=== PATIENT | female | born 1975 | race Caucasian/White ===

== ENCOUNTER 2016-05-13 14:15 | Inpatient (IN) | payer OTHER ==
[2016-05-13] MEDS ORDERED: fentaNYL 100 MCG/2 ML SDV IVPUSH PRN (14:57)
[2016-05-13] MEDS ORDERED: Ondansetron 4 MG Tab.DIS PO PRN (14:57)
[2016-05-13] MEDS ORDERED: Temazepam 15 MG Cap PO PRN (14:57)
[2016-05-13] MEDS ORDERED: Ondansetron 4 MG/2 ML SDV IV PRN (14:57)
[2016-05-13] MEDS ORDERED: Magnesium Hydroxide 400 MG/5 ML Susp 30 ML Cup PO PRN (14:57)
[2016-05-13] MEDS ORDERED: Acetaminophen 325 MG Tab PO PRN (14:57)
[2016-05-13] MEDS ORDERED: Sodium Chloride 0.9% 10 ML Syringe FLUSH PRN (14:57)
[2016-05-13] MEDS ORDERED: methylPREDNISolone Sodium Succinate 125 MG/2 ML SDV IVPUSH ONE (15:00)
[2016-05-13] MEDS ORDERED: LORazepam 0.5 MG Tab PO PRN (15:04)
[2016-05-13] MEDS: cefTRIAXone 1 GM Vial IVPUSH SCH (15:27)
[2016-05-13] MEDS: Ibuprofen 200 MG Tab PO PRN (15:27)
[2016-05-13] MEDS: Lactated Ringers 1,000 ML IV SCH (15:28)
[2016-05-13 15:53] LABS: CHLORIDE,CL 101 mEq/L (98-106); SODIUM,NA 137 mEq/L (136-145)
[2016-05-14] MEDS: Ibuprofen 200 MG Tab PO PRN ×2 (06:17→12:04)
[2016-05-14] MEDS: Lactated Ringers 1,000 ML IV SCH ×3 (06:20→19:53)
[2016-05-14] MEDS ORDERED: methylPREDNISolone Sodium Succinate 125 MG/2 ML SDV IV ONE (08:00)
[2016-05-14 08:23] LABS: CHLORIDE,CL 106 mEq/L (98-106); SODIUM,NA 142 mEq/L (136-145)
--- NOTE | 2016-05-14 12:04 | PN ---
DATE: 05/14/2016 S: Nikole Levy came in with a positive strep sepsis, started on IV antibiotics and IV fluids. She was hypokalemic. C-reactive protein elevated. O: HEENT: Posterior pharynx erythematous exudate, bilateral peritonsillar abscess with anterior cervical lymphadenopathy. CHEST: Clear. CARDIAC: Regular. ABDOMEN: Soft. ASSESSMENT: STREP SEPSIS PERITONSILLAR ABSCESS. P: Continue IV antibiotics. Watch potassium today and then await blood cultures. IVANIA/STEPHANIE /[id number]
[2016-05-14] MEDS: cefTRIAXone 1 GM Vial IVPUSH SCH (14:22)
[2016-05-15 11:55] VITALS: BP 109/68
[2016-05-15] MEDS: cefTRIAXone 1 GM Vial IVPUSH SCH (14:26)
--- NOTE | 2016-05-16 07:40 | DISCH ---
HOSPITAL COURSE: This is a 40-year-old white female who presents to the clinic hyperpyrexic with temperatures up to 102-103. We did go ahead and admit to the hospital with diagnosis of bilateral peritonsillar abscesses. She was positive strep A. Kept on Rocephin. At the time of discharge, she was 80% better, she was afebrile, able to the eat. Still little bit of abscess in the right tonsil, otherwise, doing fine. Neck was supple. Chest was clear. Cardiac was regular. Rest of labs; C-reactive protein was elevated at 13 to 15. I did not repeat it, I assume it will be down today. White count was okay, but she was hypokalemic probably from dehydration that has now corrected itself. DISPOSITION: The patient now discharged home. We will see her back in the clinic next week. At that time, will make arrangements for tonsillectomy. DISCHARGE MEDICATIONS: Include home medications plus Ceftin 250 mg p.o. b.i.d. for 8 days, prednisone 20 x 5. DISCHARGE DIAGNOSIS: BILATERAL PERITONSILLAR ABSCESSES. JAMIL /[id number]
== END 2016-05-15 15:27 | disposition home or self-care (01) | DRG 153 ==
LOC: UNDOADMIN 14:15 → CC.MS 14:15
PROVIDERS: ADMIT General Practice; ATTEND General Practice
DX: J36 Peritonsillar abscess (principal); B95.0 Streptococcus, group A, as the cause of diseases classified elsewhere; E86.0 Dehydration; E87.6 Hypokalemia
CPT/HCPCS: 36415; 71020; 80053; 81001; 83735; 84443; 85025; 85027; 86140; 87040; 87430; A9270-GY; J0696; J2930; J3010; J7120

== ENCOUNTER → 2021-07-25 | Day surgery (SDC) | payer BC ==
[~2021-07-25] MED LIST: Lactated Ringers 1,000 ML IV SCH
[2021-07-25 10:55] VITALS: BP 106/58; PULSE 64
== END ==
LOC: CC.SDS 08:06
PROVIDERS: ATTEND Surgery
DX: K29.60 Other gastritis without bleeding (principal); K29.80 Duodenitis without bleeding; F41.9 Anxiety disorder, unspecified; E78.5 Hyperlipidemia, unspecified; N13.30 Unspecified hydronephrosis; Z79.899 Other long term (current) drug therapy; Z87.891 Personal history of nicotine dependence
CPT/HCPCS: 00731; 87081; J7120

== ENCOUNTER 2022-11-08 09:35 | Emergency (ER) | payer BC ==
[2022-11-08 09:45] VITALS: BP 109/57; PULSE 75
== END 2022-11-08 09:53 | disposition home or self-care (01) ==
LOC: CC.ED 09:35
DX: S61.401A Unspecified open wound of right hand, initial encounter (principal); W26.8XXA Contact with other sharp object(s), not elsewhere classified, initial encounter
CPT/HCPCS: 99282; 99283